=== PATIENT | male | born 1965 | race Two or more races ===

== ENCOUNTER 2017-08-04 05:27 | Day surgery (SDC) | payer OTHER ==
--- NOTE | 2017-07-31 10:12 | EKG REPORT ---
SEVERITY:- NORMAL ECG - SINUS RHYTHM : Confirmed by: Adilene Garrett 31-Jul-2017 10:12:16
[2017-07-31 10:14] LABS: ABSOLUTE EOSINOPHILS # (AUTO) 0.1 10^3/uL (0.0-0.6); ABSOLUTE LYMPHOCYTES (AUTO) 2.1 10^3/uL (0.5-4.7); ABSOLUTE MONOCYTES (AUTO) 0.5 10^3/uL (0.1-1.4); ABSOLUTE NEUT (AUTO) 3.8 10^3/uL (1.7-8.2); BASOPHILS % (AUTO) 0.6 % (0-2); EOSINOPHILS % (AUTO) 1.4 % (0-6); HEMATOCRIT 47.3 % (37.9-51.0); HEMOGLOBIN 16.4 g/dL (13.5-17.0); LYMPHOCYTES % (AUTO) 32.7 % (13-45); MEAN CORPUSCULAR HGB CONC 34.6 g/dL (32.0-36.0); MEAN CORPUSCULAR VOLUME 95 fl (80-97); MONOCYTES % (AUTO) 7.6 % (3-13); PLATELET COUNT 212 10^3/uL (150-450); RED BLOOD COUNT 4.96 10^6/uL (4.35-5.55); SEGMENTED NEUTROPHILS % (AUTO) 57.7 % (42-78); TOTAL CELLS COUNTED % (AUTO) 100 %; WHITE BLOOD COUNT 6.6 10^3/uL (4.0-10.5)
[2017-07-31 10:53] LABS: ALANINE AMINOTRANSFERASE 30 U/L (21-72); ALBUMIN 4.4 g/dL (3.5-5.0); ALKALINE PHOSPHATASE 85 U/L (38-126); ANION GAP 9 (5-19); ASPARTATE AMINO TRANSFERASE 53 U/L (17-59); BILIRUBIN,DIRECT 0.4 mg/dL (0.0-0.4); BILIRUBIN,TOTAL 0.7 mg/dL (0.2-1.3); BLOOD UREA NITROGEN 24 mg/dL (7-20); CALCIUM 9.5 mg/dL (8.4-10.2); CARBON DIOXIDE 26 mmol/L (22-30); CHLORIDE 102 mmol/L (98-107); GLUCOSE 77 mg/dL (75-110); SODIUM 137.2 mmol/L (137-145); TOTAL PROTEIN 7.1 g/dL (6.3-8.2)
[2017-07-31 10:53] LABS: APPEARANCE,URINE SLIGHTLY-CLOUDY; BILIRUBIN,URINE NEGATIVE (NEGATIVE); COLOR,URINE YELLOW; GLUCOSE, URINE NEGATIVE (NEGATIVE); KETONES,URINE NEGATIVE (NEGATIVE); LEUKOCYTE ESTERASE,URINE NEGATIVE (NEGATIVE); NITRITE,URINE NEGATIVE (NEGATIVE); PROTEIN,URINE NEGATIVE (NEGATIVE); URINE SPECIFIC GRAVITY 1.006; UROBILINOGEN,URINE NEGATIVE mg/dL (<2.0)
--- NOTE | 2017-07-31 11:10 | RADIOLOGY REPORT (SQ) ---
EXAM DESCRIPTION: CHEST PA/LATERAL COMPLETED DATE/TIME: 07/31/2017 10:59 am REASON FOR STUDY: PRE OP COMPARISON: None. EXAM PARAMETERS: NUMBER OF VIEWS: two views TECHNIQUE: Digital Frontal and Lateral radiographic views of the chest acquired. RADIATION DOSE: NA LIMITATIONS: none FINDINGS: LUNGS AND PLEURA: No opacities, masses or pneumothorax. No pleural effusion. MEDIASTINUM AND HILAR STRUCTURES: No masses or contour abnormalities. HEART AND VASCULAR STRUCTURES: Heart normal size. No evidence for failure. BONES: No acute findings. HARDWARE: None in the chest. OTHER: No other significant finding. IMPRESSION: NO SIGNIFICANT RADIOGRAPHIC FINDING IN THE CHEST. TECHNICAL DOCUMENTATION: JOB ID: [id number] [employer]- All Rights Reserved
[~2017-08-04 05:27] MED LIST: CEFAZOLIN 2 GM/D5W RTU 2 GM/50 ML RTUPB IV PRN; LACTATED RINGERS 1000 ML IV PRN; LIDOCAINE 0.5% INJ-PF (5 MG/ML) 50 ML SDV SUBCUT PRN
[2017-08-04] MEDS ORDERED: BUPIVACAINE HCL 0.5 % INJ/PF 30 ML SDV ONE (06:43)
[2017-08-04] MEDS ORDERED: MIDAZOLAM 2 MG/2 ML INJ ONE (07:14)
[2017-08-04] MEDS ORDERED: ONDANSETRON HCL INJ/PF 4 MG/2 ML SDV ONE (07:14)
[2017-08-04] MEDS ORDERED: HYDROMORPHONE HCL INJ/PF 2 MG/ML AMPULE ONE (07:15)
[2017-08-04] MEDS ORDERED: PROPOFOL INJ 200 MG/20 ML VIAL IV ONE (07:15)
[2017-08-04] MEDS ORDERED: LIDOCAINE 1% INJ-PF (10 MG/ML) 30 ML SDV ONE (07:26)
[2017-08-04] MEDS ORDERED: DIPHENHYDRAMINE HCL 50 MG/ML VIAL IV PRN (07:42)
[2017-08-04] MEDS ORDERED: FENTANYL CITRATE INJ/PF 100 MCG/2 ML AMPUL IV PRN ×3 (07:42)
[2017-08-04] MEDS ORDERED: MEPERIDINE HCL/PF INJ 25 MG/1 ML DISP.SYRIN IV PRN (07:42)
--- NOTE | 2017-08-04 07:51 | Operative Report ---
Operative Report DATE OF SURGERY: 08/04/17 PREOPERATIVE DIAGNOSIS: Right small finger mallet POSTOPERATIVE DIAGNOSIS: Same OPERATION: Transarticular Pinning Right Small Finger SURGEON: HAO GILBERT ANESTHESIA: LMAC COMPLICATIONS: None ESTIMATED BLOOD LOSS: Minimal PROCEDURE: Indication for above procedure: 52-year-old male who sustained a hyperflexion injury to his right small finger. Patient had inability to extend at the DIP joint. Patient subsequently followed up at my office which point we discussed treatment options including observation versus splinting versus pinning. After discussing prognosis and expectations of each decision was made to proceed with operative treatment. Risks and benefits were explained patient verbalized understanding consented for the procedure. Procedure In Detail: Patient was seen and evaluated in the preoperative holding area. The RIGHT upper extremity was initialized and marked. Patient received 2g of Ancef IV for bacterial prophylaxis. Patient was taken back to the operative room where transferred to the operative table. Once they were adequately anesthetized a nonsterile tourniquet was placed on the upper extremity. A surgical team debriefing was performed ensuring all instrumentation was available, the surgical procedure was discussed with possible concerns reviewed. A digital block was performed utilizing 10 mL 50:50 mixture of 0.5% Marcaine and 1% lidocaine without epinephrine. The upper extremity was prepped with chlorhexidine and alcohol and draped in a sterile fashion. A timeout was done identifying correct patient, procedure and extremity everyone in attendance agree with this and verbalized no concerns. The extremity was exsanguinated the tourniquet was inflated to 200 mmHg. Patient's finger was placed in neutral extension and a 0.045 K wire was inserted just volar to the hyponychium. K wire was passed across the DIP joint maintaining neutral position with no evidence of subluxation. C-arm fluoroscopy confirmed appropriate placement of the K wire. The camera was then cut below the skin along the distal tip in a soft dressing was placed. Sponge counts, instrument counts, needle counts counts were correct. Patient was then awoken from anesthesia. Transferred from the operating room table to the operating room stretcher. There was no intraoperative complications patient tolerated procedure well stable to PACU. Postoperative plan: We will obtain radiographs at follow-up visit. Patient will start PIP joint range of motion immediately.
--- NOTE | 2017-08-04 07:52 | Discharge Summary ---
Discharge Summary (SDC) - Discharge Final Diagnosis: Right small finger soft tissue mallet digit Date of Surgery: 08/04/17 Discharge Date: 08/04/17 Condition: Good Treatment or Instructions: Schedule Follow Up w/ Dr. Lyndon Duke @ [facility] to be seen in 10-14 days or as scheduled [place]: [place]: [place]: May remove dressing on postop day #[address] keep incision covered and dry. Ice and elevate May begin finger range of motion of the PIP joint of the small finger but not at the DIP joint Prescriptions: Hydrocodone/Acetaminophen [[place] 5-325 mg Tablet] 1 tab PO Q8 PRN #10 tablet PRN Reason: Discharge Diet: As Tolerated Respiratory Treatments at Home: Deep Breathing/Coughing Discharge Activity: No Lifting Over 10 Pounds, No Lifting/Push/Pulling Report the Following to Your Physician Immediately: Fever over 101 Degrees, Unusual Bleeding, Redness, Swelling, Warmth, Increased Soreness
[2017-08-04 09:46] VITALS: BP 140/97
--- NOTE | 2017-08-04 10:08 | RADIOLOGY REPORT (SQ) ---
EXAM DESCRIPTION: NO CHG FLUORO; FINGER RIGHT COMPLETED DATE/TIME: 08/04/2017 8:12 am; 08/04/2017 8:13 am REASON FOR STUDY: TRANS PINNING OF RIGHT 5TH DIGIT IP JOINT IN OR S62.636A DISP FX OF DISTAL PHALAN X OF RIGHT LITTLE FINGER, I COMPARISON: None. FLUOROSCOPY TIME: 11 second 2 images saved to PACS. TECHNIQUE: Intra-operative images acquired during surgical procedure to evaluate progress. NUMBER OF IMAGES: 2 LIMITATIONS: None. FINDINGS: Orthopedic pin fixation of 5th distal interphalangeal joint in the operating room. IMPRESSION: IMAGE(S) OBTAINED DURING PROCEDURE. COMMENT: Quality ID [id number]: Final reports for procedures using fluoroscopy that document radiation exp osure indices, or exposure time and number of fluorographic images (if radiation exposure indices are not available) Please consult full operative report of the attending physician for description of the procedure. TECHNICAL DOCUMENTATION: JOB ID: [id number] [employer]- All Rights Reserved
== END 2017-08-04 09:35 | disposition home or self-care (01) ==
LOC: OROUT 05:27
PROVIDERS: ATTEND Orthopaedic Surgery
PROC: 0XQ Anatomical Regions, Upper Extremities, Repair (ICD-10-PCS; principal; 2017-08-04 07:15)
DX: M20.011 Mallet finger of right finger(s) (principal); G89.4 Chronic pain syndrome; K21.9 Gastro-esophageal reflux disease without esophagitis; M50.20 Other cervical disc displacement, unspecified cervical region; Z87.891 Personal history of nicotine dependence
CPT/HCPCS: 93005; 36415; 85025; 80053; 81001; 71046; 73140; 93010; 26432; C1769; J2250; J3490 ×2; J1170; J2405; J2704; J0690; 01820